=== PATIENT | male | born 1955 | race Caucasian/White ===

== ENCOUNTER 2018-03-15 06:39 | Inpatient (IN) ==
[2018-03-14 09:02] LABS: Basophils % 0.4 % (0.0-0.8); Eosinophils # 0.1 10*3/uL (0.0-0.87); Hematocrit 44.3 VOL% (42.0-52.0); Hemoglobin 14.4 GM/DL (14.0-18.0); Immature Granulocytes % 0.4 %; Immature Granulocytes Absolute 0.03 #; Lymphocytes # 1.2 10*3/uL (1.4-4.0); Mean Corpuscular HGB Conc 32.5 GM/DL (32-36); Mean Corpuscular Hemoglobin 29 PG (27-34); Mean Corpuscular Volume 90.4 FL (87-102); Mean Platelet Volume 10.2 FL (9.6-12.0); Monocytes # 0.6 10*3/uL (0.11-0.8); Monocytes % 8.7 % (1.7-12.7); Neutrophils # 5.1 10*3/uL (1.4-7.4); Neutrophils % 72.5 % (38.7-73.9); Platelet Count 252 T/CUMM (130-400); Red Cell Distribution Width 13.2 % (9.3-17.3)
[2018-03-14 09:42] LABS: Albumin 3.7 G/DL (3.4-5.0); Bilirubin,Total 0.4 MG/DL (0.2-1.0); Calcium 8.9 MG/DL (8.5-10.1); Osmolality,Calculated 285.5 MOS/KG (273-304); Potassium 4.3 MMOL/L (3.5-5.1); Total Protein 7.4 G/DL (6.4-8.3)
[~2018-03-15 06:39] MED LIST: HEPARIN 5,000 UNIT/1 ML VIAL ONE; LIDOCAINE 1% 50 ML VIAL ONE; ceFAZolin 1,000 MG in SYRINGE 1 EACH IV ONE
[2018-03-15] MEDS ORDERED: ceFAZolin 1,000 MG VIAL ONE (08:00)
[2018-03-15] MEDS: LACTATED RINGERS 1,000 ML IV SCH ×2 (08:50→12:13)
[2018-03-15] MEDS ORDERED: GLUCAGON 1 MG VIAL IM PRN (10:54)
[2018-03-15] MEDS ORDERED: DEXTROSE 50% 25 GM/50 ML VIAL IV PRN (10:54)
[2018-03-15] MEDS ORDERED: oxyCODONE/ACETAMINOPHEN 5-325 MG TABLET PO PRN (10:54)
[2018-03-15] MEDS ORDERED: NALOXONE 0.4 MG/ML VIAL IV PRN (10:54)
[2018-03-15] MEDS ORDERED: PROMETHAZINE 25 MG/1 ML VIAL IM PRN (10:54)
[2018-03-15] MEDS ORDERED: NITROPRUSSIDE 100 MG in DEXTROSE 5% 250 ML IV SCH (11:00)
[2018-03-15] MEDS ORDERED: PHENYLEPHRINE DRIP 40 MG/250 ML PREMIX IV SCH (11:00)
[2018-03-15] MEDS: HYDROmorphone 2 MG/1 ML VIAL IV PRN ×6 (11:16→22:18)
[2018-03-15] MEDS ORDERED: HEPARIN/NACL 0.9% 2 UNITS/ML 500 ML IV ONE (11:18)
[2018-03-15] MEDS ORDERED: ROCURONIUM 100 MG/10 ML VIAL IV ONE (11:19)
[2018-03-15] MEDS ORDERED: ePHEDrine 50 MG/ML AMP ONE (11:19)
[2018-03-15] MEDS ORDERED: PHENYLEPHRINE 10 MG/1 ML VIAL IV ONE (11:19)
[2018-03-15] MEDS ORDERED: ETOMIDATE 40 MG/20 ML VIAL IV ONE (11:19)
[2018-03-15] MEDS ORDERED: SEVOFLURANE 1 UNIT/15 MINUTE INH ONE (11:19)
[2018-03-15] MEDS ORDERED: fentaNYL 100 MCG/2 ML VIAL ONE (11:19)
[2018-03-15] MEDS ORDERED: HEPARIN 10,000 UNIT/10 ML VIAL ONE (11:19)
[2018-03-15] MEDS ORDERED: PHENYLEPHRINE 1 MG/10 ML SYRINGE IV ONE (11:19)
[2018-03-15] MEDS ORDERED: PROTAMINE SULFATE 50 MG/5 ML VIAL IV ONE (11:19)
[2018-03-15] MEDS ORDERED: SODIUM CHLORIDE 0.9% 2,000 ML IV ONE (11:20)
[2018-03-15] MEDS ORDERED: ONDANSETRON 4 MG/2 ML VIAL IV PRN (11:31)
[2018-03-15] MEDS: ASPIRIN EC 81 MG TABLET PO SCH (15:04)
[2018-03-15] MEDS: RIVAROXABAN 20 MG TABLET PO SCH (21:04)
[2018-03-15] MEDS: CARVEDILOL 12.5 MG TABLET PO SCH (21:04)
[2018-03-15] MEDS: FUROSEMIDE 40 MG TABLET PO SCH (21:04)
[2018-03-16] MEDS: LACTATED RINGERS 1,000 ML IV SCH ×3 (01:57→09:02)
[2018-03-16] MEDS: HYDROmorphone 2 MG/1 ML VIAL IV PRN ×3 (02:14→14:11)
[2018-03-16] MEDS: ONDANSETRON 4 MG/2 ML VIAL IV PRN ×2 (02:14→07:19)
[2018-03-16] MEDS ORDERED: ASPIRIN EC 81 MG TABLET PO SCH (09:00)
[2018-03-16] MEDS ORDERED: CANAGLIFLOZIN 300 MG PO SCH (09:00)
[2018-03-16] MEDS ORDERED: CLOPIDOGREL 75 MG TABLET PO SCH (09:00)
[2018-03-16] MEDS ORDERED: DULAGLUTIDE 0.75 MG SQ SCH (09:00)
[2018-03-16] MEDS: ROSUVASTATIN 20 MG TABLET PO SCH (09:11)
[2018-03-16] MEDS: TAMSULOSIN 0.4 MG CAPSULE PO SCH (09:11)
[2018-03-16] MEDS: ASPIRIN EC 81 MG TABLET PO SCH (09:11)
[2018-03-16] MEDS: CARVEDILOL 12.5 MG TABLET PO SCH (09:22)
[2018-03-16] MEDS ORDERED: ACETAMINOPHEN 325 MG TABLET PO PRN (15:48)
[2018-03-16] MEDS: FUROSEMIDE 40 MG TABLET PO SCH (20:29)
[2018-03-16] MEDS: FLUTICASONE 50 MCG NASAL SPRAY 16 GM BOTTLE BOTH NARES SCH (20:29)
[2018-03-16] MEDS: RIVAROXABAN 20 MG TABLET PO SCH (20:29)
[2018-03-16] MEDS: oxyCODONE/ACETAMINOPHEN 5-325 MG TABLET PO PRN (21:59)
[2018-03-17] MEDS: HYDROmorphone 2 MG/1 ML VIAL IV PRN (01:11)
[2018-03-17] MEDS: ONDANSETRON 4 MG/2 ML VIAL IV PRN (01:49)
[2018-03-17 07:50] VITALS: BP 128/74
[2018-03-17] MEDS: ASPIRIN EC 81 MG TABLET PO SCH (08:56)
[2018-03-17] MEDS: ROSUVASTATIN 20 MG TABLET PO SCH (08:56)
[2018-03-17] MEDS: TAMSULOSIN 0.4 MG CAPSULE PO SCH (08:57)
[2018-03-17] MEDS: FLUTICASONE 50 MCG NASAL SPRAY 16 GM BOTTLE BOTH NARES SCH (08:59)
[2018-03-17] MEDS: oxyCODONE/ACETAMINOPHEN 5-325 MG TABLET PO PRN (10:42)
== END 2018-03-17 13:10 | disposition home or self-care (01) | DRG 39 ==
LOC: N.OR 06:39 → N.SDSINP 06:40 → N.ICU 10:54 → N.4E 03-16 11:16
PROVIDERS: ADMIT Surgery; ATTEND Surgery